=== PATIENT | female | born 1975 | race Caucasian/White ===

== ENCOUNTER 2020-05-08 08:52 | Inpatient (IN) | payer MEDICAID ==
[2020-05-08] VITALS (10 sets, daily range): BP systolic 136–186; BP diastolic 82–117
[~2020-05-08] VITALS: Ht 162.6 cm; Wt 82.1 kg
[2020-05-08] MEDS ORDERED: PARO20TA24 PO (10:26)
[2020-05-08] MEDS ORDERED: HALOPERIDOL 5 MG TABLET PO PRN (10:45)
[2020-05-08] MEDS ORDERED: PRAZ1 PO (11:12)
[2020-05-08] MEDS ORDERED: CYANOCOBALAMIN 1,000 MCG/ML VIAL IM ONE (11:15)
[2020-05-08] MEDS ORDERED: AmLODIPine BESYLATE 5 MG TABLET PO SCH (12:15)
[2020-05-08] MEDS: MULTIVITAMINS WITH MINERALS, THERAPEUTIC TABLET PO SCH (14:04)
[2020-05-08] MEDS: THIAMINE 100 MG TABLET PO SCH ×2 (14:04→16:32)
[2020-05-08] MEDS: FOLIC ACID 1 MG TABLET PO SCH (14:04)
[2020-05-08] MEDS: LORazepam 2 MG TABLET PO PRN (15:44)
[2020-05-08] MEDS: CloNIDine HCL 0.1 MG TABLET PO PRN (18:11)
[2020-05-08] MEDS ORDERED: AmLODIPine BESYLATE 2.5 MG TABLET PO ONE (19:45)
[2020-05-09] VITALS (10 sets, daily range): BP systolic 130–158; BP diastolic 84–124
[2020-05-09] MEDS: CloNIDine HCL 0.1 MG TABLET PO PRN (02:53)
[2020-05-09] MEDS: LORazepam 2 MG TABLET PO PRN (06:19)
[2020-05-09] MEDS ORDERED: LORazepam 2 MG TABLET PO PRN (07:00)
[2020-05-09 08:11] LABS: BASOPHILS % (AUTO) 0.6 % (0.0-2.0); EOSINOPHILS % (AUTO) 1.6 % (1.0-6.0); HEMOGLOBIN 13.5 g/dL (12.0-16.0); LYMPHOCYTES # (AUTO) 2.5 K/uL (1.0-4.8); LYMPHOCYTES % (AUTO) 24.6 % (22.0-44.0); MEAN CORPUSCULAR HEMOGLOBIN 26.3 pg (26.0-34.0); MEAN CORPUSCULAR HGB CONC 32.1 G/dL (31.0-37.0); MEAN CORPUSCULAR VOLUME 82 fL (80-100); MONOCYTES # (AUTO) 0.6 K/uL (0.1-1.0); NEUTROPHILS # (AUTO) 6.7 K/uL (1.8-7.7); NEUTROPHILS % (AUTO) 67.2 % (40.0-70.0); PLATELET COUNT (AUTO) 312 K/uL (150-450); RED BLOOD CELL COUNT(AUTO) 5.14 MIL/uL (4.00-5.20); RED CELL DISTRIBUTION WIDTH 18.1 % (11.5-14.5)
[2020-05-09] MEDS ORDERED: MAGNESIUM HYDROXIDE SUSPENSION 30 ML UDCUP PO PRN (08:30)
[2020-05-09] MEDS ORDERED: GuaiFENesin/D-METHORPHAN [SUGAR-FREE] 200-20MG/10 ML SYRUP UDCUP PO PRN (08:30)
[2020-05-09] MEDS ORDERED: ONDANSETRON HCL 4 MG TABLET PO PRN (08:30)
[2020-05-09] MEDS ORDERED: ALBUTEROL SULFATE HFA 90 MCG/PUFF 8 GM INHALER IH PRN (08:30)
[2020-05-09] MEDS ORDERED: PETROLATUM,WHITE 28 GM JELLY TP PRN (08:30)
[2020-05-09] MEDS ORDERED: DOCUSATE SODIUM 100 MG CAPSULE PO PRN (08:30)
[2020-05-09] MEDS ORDERED: MAG HYDROX/AL HYDROX/SIMETH ES 30 ML SUSPENSION UDCUP PO PRN (08:30)
[2020-05-09] MEDS ORDERED: NICOTINE 14 MG/24 HOUR PATCH TD PRN (08:30)
[2020-05-09] MEDS ORDERED: LOPERAMIDE HCL 2 MG CAPSULE PO PRN (08:30)
[2020-05-09] MEDS ORDERED: CloNIDine HCL 0.1 MG TABLET PO PRN (08:30)
[2020-05-09 08:42] LABS: HEMOGLOBIN A1C 5.1 % (3.8-5.6)
[2020-05-09 08:43] LABS: APPEARANCE,URINE CLOUDY (CLEAR); BILIRUBIN,URINE NEGATIVE (NEGATIVE); GLUCOSE, URINE (UA) NEGATIVE (NEGATIVE); KETONES,URINE NEGATIVE (NEGATIVE); LEUKOCYTE ESTERASE ,URINE SMALL (NEGATIVE); NITRATE,URINE NEGATIVE (NEGATIVE); OCCULT BLOOD,URINE LARGE (NEGATIVE); PROTEIN,URINE NEGATIVE (NEGATIVE); UROBILINOGEN,URINE 0.2 mg/dL (<=1.0)
[2020-05-09 08:46] LABS: ALANINE AMINOTRANSFERASE 88 U/L (12-78); ALBUMIN 3.8 g/dL (3.4-5.0); ALKALINE PHOSPHATASE 153 U/L (46-116); ANION GAP 15 mmol/L (8-16); ASPARTATE AMINOTRANSFERASE 47 U/L (15-37); BILIRUBIN,TOTAL 0.9 mg/dL (0.1-1.0); CALCIUM, TOTAL 8.4 mg/dL (8.8-10.5); CARBON DIOXIDE 26 mmol/L (22-29); CHLORIDE 97 mmol/L (98-107); CHOLESTEROL 137 mg/dL (131-200); CREATININE 0.71 mg/dL (0.60-1.30); FREE T4 (FREE THYROXINE) 1.09 ng/dL (0.76-1.46); GLOMERULAR FILTR. RATE CALC > 60 mL/min (>60); GLUCOSE,RANDOM 81 mg/dL (70-110); HCG,QUANTITATIVE < 1 mIU/mL (0-6); HDL CHOLESTEROL 69 mg/dL (40-60); LDL CHOL (CALC.) 36 mg/dL (0-130); SODIUM SERUM 138 mmol/L (136-145); THYROID STIMULATING HORMONE 3.46 uIU/mL (0.36-3.74); TOTAL PROTEIN, SERUM 8.7 g/dL (6.4-8.2); TRIGLYCERIDES 161 mg/dL (15-150); UREA NITROGEN, BLOOD 9 mg/dL (7-18)
[2020-05-09 08:57] LABS: AMPHET/METH SCREEN,URINE NEGATIVE (NEGATIVE); BARBITURATE SCREEN, URINE NEGATIVE (NEGATIVE); BENZODIAZEPINES SCREEN,URINE NEGATIVE (NEGATIVE); CANNABINOID SCREEN,URINE NEGATIVE (NEGATIVE); COCAINE SCREEN,URINE NEGATIVE (NEGATIVE); METHADONE SCREEN, URINE NEGATIVE (NEGATIVE); OPIATE SCREEN,URINE NEGATIVE (NEGATIVE)
[2020-05-09 08:58] LABS: PHENCYCLIDINE SCREEN,URINE NEGATIVE (NEGATIVE)
[2020-05-09] MEDS: LORazepam 2 MG TABLET PO SCH ×4 (09:23→20:05)
[2020-05-09] MEDS: AmLODIPine BESYLATE 10 MG TABLET PO SCH (09:23)
[2020-05-09] MEDS: THIAMINE 100 MG TABLET PO SCH ×2 (09:23→16:04)
[2020-05-09] MEDS: MULTIVITAMINS WITH MINERALS, THERAPEUTIC TABLET PO SCH (09:23)
[2020-05-09] MEDS: FOLIC ACID 1 MG TABLET PO SCH (09:23)
[2020-05-09 09:30] LABS: BACTERIA,URINE Few /HPF (None Seen); SQUAMOUS EPITHELIAL CELL,UR Moderate /LPF (None Seen)
[2020-05-09] MEDS: ACETAMINOPHEN 325 MG TABLET PO PRN (12:49)
[2020-05-09] MEDS: PARoxetine HCL 20 MG TABLET PO SCH (14:31)
[2020-05-09] MEDS ORDERED: POTASSIUM CHLORIDE 20 MEQ ER TABLET PO ONE (15:15)
[2020-05-09] MEDS: ZOLPIDEM TARTRATE 10 MG TABLET PO PRN (21:04)
[2020-05-10 00:25] VITALS: BP_SYST 128; BP_SYST 153; BP_DIAS 105; BP_DIAS 79
[2020-05-10 02:25] VITALS: BP_SYST 128; BP_SYST 153; BP_DIAS 105; BP_DIAS 79
[2020-05-10] MEDS: LORazepam 2 MG TABLET PO SCH ×4 (08:27→20:34)
[2020-05-10] MEDS: MULTIVITAMINS WITH MINERALS, THERAPEUTIC TABLET PO SCH (08:27)
[2020-05-10] MEDS: THIAMINE 100 MG TABLET PO SCH ×2 (08:27→16:08)
[2020-05-10] MEDS: AmLODIPine BESYLATE 10 MG TABLET PO SCH (08:27)
[2020-05-10] MEDS: FOLIC ACID 1 MG TABLET PO SCH (08:27)
[2020-05-10] MEDS: PARoxetine HCL 20 MG TABLET PO SCH (08:27)
[2020-05-10 08:40] VITALS: BP 125/77
[2020-05-10 12:16] VITALS: BP 138/94
[2020-05-10 16:18] VITALS: BP 116/92
[2020-05-10 18:36] VITALS: BP 116/92
[2020-05-10] MEDS: ACETAMINOPHEN 325 MG TABLET PO PRN (19:22)
[2020-05-10] MEDS: TraZODone HCL 100 MG TABLET PO SCH (20:34)
[2020-05-10] MEDS: PRAZOSIN HCL 1 MG CAPSULE PO SCH (20:35)
[2020-05-10] MEDS: ZOLPIDEM TARTRATE 10 MG TABLET PO PRN (20:37)
[2020-05-11] VITALS (7 sets, daily range): BP systolic 102–145; BP diastolic 66–87
[2020-05-11] MEDS ORDERED: LORazepam 1 MG TABLET PO PRN (07:00)
[2020-05-11] MEDS: FOLIC ACID 1 MG TABLET PO SCH (08:58)
[2020-05-11] MEDS: LORazepam 1 MG TABLET PO SCH ×4 (08:58→20:35)
[2020-05-11] MEDS: MULTIVITAMINS WITH MINERALS, THERAPEUTIC TABLET PO SCH (08:58)
[2020-05-11] MEDS: THIAMINE 100 MG TABLET PO SCH ×2 (08:58→16:36)
[2020-05-11] MEDS: SERTRALINE HCL 50 MG TABLET PO SCH (08:58)
[2020-05-11] MEDS: AmLODIPine BESYLATE 10 MG TABLET PO SCH (08:58)
[2020-05-11] MEDS: ACETAMINOPHEN 325 MG TABLET PO PRN (12:40)
[2020-05-11] MEDS: PRAZOSIN HCL 1 MG CAPSULE PO SCH (20:35)
[2020-05-11] MEDS: TraZODone HCL 100 MG TABLET PO SCH (20:35)
[2020-05-12 05:38] VITALS: BP 124/79
[2020-05-12 05:58] VITALS: BP 124/79
[2020-05-12] MEDS: MULTIVITAMINS WITH MINERALS, THERAPEUTIC TABLET PO SCH (08:45)
[2020-05-12] MEDS: FOLIC ACID 1 MG TABLET PO SCH (08:45)
[2020-05-12] MEDS: THIAMINE 100 MG TABLET PO SCH ×2 (08:45→16:41)
[2020-05-12] MEDS: AmLODIPine BESYLATE 10 MG TABLET PO SCH (08:45)
[2020-05-12] MEDS: SERTRALINE HCL 50 MG TABLET PO SCH (08:45)
[2020-05-12 09:16] VITALS: BP 95/61
[2020-05-12] MEDS: NALTREXONE HCL 50 MG TABLET PO SCH (12:27)
[2020-05-12] MEDS: IBUPROFEN 400 MG TABLET PO PRN (12:27)
[2020-05-12] MEDS: ACETAMINOPHEN 325 MG TABLET PO PRN (16:14)
[2020-05-12 16:15] VITALS: BP 112/69
[2020-05-12 16:56] VITALS: BP 112/69
[2020-05-12] MEDS: LORazepam 1 MG TABLET PO PRN (17:36)
[2020-05-12] MEDS: ZOLPIDEM TARTRATE 10 MG TABLET PO PRN (21:00)
[2020-05-12] MEDS: PRAZOSIN HCL 1 MG CAPSULE PO SCH (21:00)
[2020-05-12] MEDS: TraZODone HCL 100 MG TABLET PO SCH (21:00)
[2020-05-13 01:53] VITALS: BP 110/71
[2020-05-13 02:19] VITALS: BP 110/71
[2020-05-13] MEDS ORDERED: PNEUMOCOCCAL VACCINE POLYVALENT 0.5 ML VIAL [PPSV23] IM ONE (03:00)
[2020-05-13] MEDS: IBUPROFEN 400 MG TABLET PO PRN (05:04)
[2020-05-13] MEDS: LORazepam 1 MG TABLET PO PRN (05:05)
[2020-05-13] MEDS: FOLIC ACID 1 MG TABLET PO SCH (08:26)
[2020-05-13] MEDS: NALTREXONE HCL 50 MG TABLET PO SCH (08:26)
[2020-05-13] MEDS: THIAMINE 100 MG TABLET PO SCH ×2 (08:26→16:20)
[2020-05-13] MEDS: SERTRALINE HCL 50 MG TABLET PO SCH (08:26)
[2020-05-13] MEDS: AmLODIPine BESYLATE 10 MG TABLET PO SCH (08:26)
[2020-05-13] MEDS: MULTIVITAMINS WITH MINERALS, THERAPEUTIC TABLET PO SCH (08:26)
[2020-05-13 08:40] VITALS: BP 106/64
[2020-05-13 16:20] VITALS: BP 129/82
[2020-05-13 20:25] VITALS: BP 128/85
[2020-05-13] MEDS: PRAZOSIN HCL 1 MG CAPSULE PO SCH (20:29)
[2020-05-13] MEDS: TraZODone HCL 100 MG TABLET PO SCH (20:29)
[2020-05-14 01:51] VITALS: BP 138/86
[2020-05-14] MEDS: ZOLPIDEM TARTRATE 10 MG TABLET PO PRN (02:02)
[2020-05-14] MEDS ORDERED: OMEGA-3/DHA/EPA/FISH OIL 1,000 MG CAPSULE PO SCH (09:00)
[2020-05-14] MEDS: THIAMINE 100 MG TABLET PO SCH (09:15)
[2020-05-14] MEDS: NALTREXONE HCL 50 MG TABLET PO SCH (09:15)
[2020-05-14] MEDS: MULTIVITAMINS WITH MINERALS, THERAPEUTIC TABLET PO SCH (09:16)
[2020-05-14] MEDS: SERTRALINE HCL 50 MG TABLET PO SCH (09:16)
[2020-05-14] MEDS: AmLODIPine BESYLATE 10 MG TABLET PO SCH (09:16)
[2020-05-14] MEDS: FOLIC ACID 1 MG TABLET PO SCH (09:16)
[2020-05-14 09:54] VITALS: BP 130/79
[2020-05-14] MEDS ORDERED: SERT50TA12 PO (10:27)
[2020-05-14] MEDS ORDERED: NALT50TA PO (10:27)
[2020-05-14] MEDS ORDERED: TRAZ-257 PO (10:27)
[2020-05-14] MEDS ORDERED: PRAZ1 PO (10:27)
[2020-05-14] MEDS ORDERED: AMLO-258 PO (14:35)
== END 2020-05-14 15:35 | disposition home or self-care (01) | DRG 885 ==
LOC: B2S 11:35
PROC: 3E0234Z Introduction of Serum, Toxoid and Vaccine into Muscle, Percutaneous Approach (ICD-10-PCS; principal; 2020-05-13)
DX: F33.2 Major depressive disorder, recurrent severe without psychotic features (principal); R45.851 Suicidal ideations; N39.0 Urinary tract infection, site not specified; Z91.5 Personal history of self-harm; I10 Essential (primary) hypertension; Z88.0 Allergy status to penicillin; F10.20 Alcohol dependence, uncomplicated; F19.10 Other psychoactive substance abuse, uncomplicated; R74.0 Nonspecific elevation of levels of transaminase and lactic acid dehydrogenase [LDH]; E87.6 Hypokalemia; F43.12 Post-traumatic stress disorder, chronic; Z79.899 Other long term (current) drug therapy; Y90.8 Blood alcohol level of 240 mg/100 ml or more; Z23 Encounter for immunization
CPT/HCPCS: 80307; 83036; 84132; 84436; 84439; 84443; 86592; 87081; 90732; G0480; J3420

== ENCOUNTER 2020-07-24 14:54 | Inpatient (IN) | payer MEDICAID ==
[~2020-07-24] VITALS: Ht 162.6 cm; Wt 84.8 kg
[~2020-07-24 14:54] MED LIST: AMLO-258 PO; NALT50TA PO; PRAZ1 PO; SERT50TA12 PO; TRAZ-257 PO
[2020-07-24] MEDS ORDERED: HALOPERIDOL 5 MG TABLET PO PRN (15:15)
[2020-07-24] MEDS ORDERED: ZOLPIDEM TARTRATE 10 MG TABLET PO PRN (15:15)
[2020-07-24] MEDS ORDERED: TRAZ-257 PO (16:10)
[2020-07-24] MEDS ORDERED: NALT50TA6 PO (16:10)
[2020-07-24] MEDS ORDERED: SERT50TA12 PO (16:10)
[2020-07-24] MEDS ORDERED: PRAZ1 PO (16:10)
[2020-07-24 17:20] VITALS: BP 183/114
[2020-07-24] MEDS: LORazepam 2 MG TABLET PO PRN (17:56)
[2020-07-24 18:00] VITALS: BP 183/114
[2020-07-24] MEDS ORDERED: -PHARMACY VACCINE NOTE- MISC ONE (18:15)
[2020-07-24] MEDS ORDERED: INFLUENZA VIRUS VACCINE QVS 2020-21 (6MO+)/PF 60 MCG/0.5 ML SYRINGE IM ONE (18:15)
[2020-07-24 18:20] VITALS: BP 185/116
[2020-07-24] MEDS ORDERED: CloNIDine HCL 0.1 MG TABLET PO PRN (18:30)
[2020-07-24 20:20] VITALS: BP 161/113
[2020-07-25] VITALS (8 sets, daily range): BP systolic 131–150; BP diastolic 84–96
[2020-07-25] MEDS ORDERED: NICOTINE 14 MG/24 HOUR PATCH TD PRN (07:45)
[2020-07-25] MEDS ORDERED: ALBUTEROL SULFATE HFA 90 MCG/PUFF 8 GM INHALER IH PRN (07:45)
[2020-07-25] MEDS ORDERED: GuaiFENesin/D-METHORPHAN [SUGAR-FREE] 200-20MG/10 ML SYRUP UDCUP PO PRN (07:45)
[2020-07-25] MEDS ORDERED: ONDANSETRON HCL 4 MG TABLET PO PRN (07:45)
[2020-07-25] MEDS ORDERED: ACETAMINOPHEN 325 MG TABLET PO PRN (07:45)
[2020-07-25] MEDS ORDERED: PETROLATUM,WHITE 28 GM JELLY TP PRN (07:45)
[2020-07-25] MEDS ORDERED: LOPERAMIDE HCL 2 MG CAPSULE PO PRN (07:45)
[2020-07-25] MEDS ORDERED: MAG HYDROX/AL HYDROX/SIMETH ES 30 ML SUSPENSION UDCUP PO PRN (07:45)
[2020-07-25] MEDS ORDERED: CloNIDine HCL 0.1 MG TABLET PO PRN (07:45)
[2020-07-25] MEDS ORDERED: IBUPROFEN 400 MG TABLET PO PRN (07:45)
[2020-07-25] MEDS ORDERED: DOCUSATE SODIUM 100 MG CAPSULE PO PRN (07:45)
[2020-07-25] MEDS ORDERED: MAGNESIUM HYDROXIDE SUSPENSION 30 ML UDCUP PO PRN (07:45)
[2020-07-25] MEDS ORDERED: AmLODIPine BESYLATE 10 MG TABLET PO SCH (09:00)
[2020-07-25] MEDS: LORazepam 2 MG TABLET PO PRN ×2 (09:03→16:11)
[2020-07-25] MEDS: AmLODIPine BESYLATE 10 MG TABLET PO SCH (09:03)
[2020-07-25] MEDS: PARoxetine HCL 20 MG TABLET PO SCH (13:44)
[2020-07-25] MEDS: TraZODone HCL 50 MG TABLET PO SCH (21:05)
[2020-07-25] MEDS: PRAZOSIN HCL 1 MG CAPSULE PO SCH (21:05)
[2020-07-26 02:47] VITALS: BP 128/80
[2020-07-26 07:38] LABS: BASOPHILS % (AUTO) 0.5 % (0.0-2.0); EOSINOPHILS % (AUTO) 1.8 % (1.0-6.0); HEMATOCRIT 36.6 % (36-46); HEMOGLOBIN 12.3 g/dL (12.0-16.0); LYMPHOCYTES # (AUTO) 1.7 K/uL (1.0-4.8); LYMPHOCYTES % (AUTO) 20.8 % (22.0-44.0); MEAN CORPUSCULAR HEMOGLOBIN 27.2 pg (26.0-34.0); MEAN CORPUSCULAR HGB CONC 33.6 G/dL (31.0-37.0); MEAN CORPUSCULAR VOLUME 81 fL (80-100); MONOCYTES # (AUTO) 0.6 K/uL (0.1-1.0); MONOCYTES % (AUTO) 7.3 % (2.0-9.0); NEUTROPHILS # (AUTO) 5.6 K/uL (1.8-7.7); NEUTROPHILS % (AUTO) 69.6 % (40.0-70.0); PLATELET COUNT (AUTO) 194 K/uL (150-450); RED BLOOD CELL COUNT(AUTO) 4.52 MIL/uL (4.00-5.20); RED CELL DISTRIBUTION WIDTH 19.3 % (11.5-14.5)
[2020-07-26 08:09] VITALS: BP 106/71
[2020-07-26 08:15] LABS: ALANINE AMINOTRANSFERASE 41 U/L (12-78); ALBUMIN 3.3 g/dL (3.4-5.0); ALKALINE PHOSPHATASE 89 U/L (46-116); ANION GAP 10 mmol/L (8-16); ASPARTATE AMINOTRANSFERASE 26 U/L (15-37); BILIRUBIN,TOTAL 0.7 mg/dL (0.1-1.0); CALCIUM, TOTAL 8.1 mg/dL (8.8-10.5); CARBON DIOXIDE 26 mmol/L (22-29); CHLORIDE 105 mmol/L (98-107); CHOL/HDL RATIO 2.4 (3.9-5.7); CHOLESTEROL 134 mg/dL (131-200); CREATININE 0.71 mg/dL (0.60-1.30); GLOMERULAR FILTR. RATE CALC > 60 mL/min (>60); GLUCOSE,RANDOM 85 mg/dL (70-110); HCG,QUANTITATIVE 1 mIU/mL (0-6); HDL CHOLESTEROL 57 mg/dL (40-60); LDL CHOL (CALC.) 50 mg/dL (0-130); SODIUM SERUM 141 mmol/L (136-145); TOTAL PROTEIN, SERUM 7.1 g/dL (6.4-8.2); TRIGLYCERIDES 136 mg/dL (15-150); UREA NITROGEN, BLOOD 8 mg/dL (7-18)
[2020-07-26 08:28] LABS: HEMOGLOBIN A1C 4.9 % (3.8-5.6)
[2020-07-26] MEDS: AmLODIPine BESYLATE 10 MG TABLET PO SCH (08:30)
[2020-07-26] MEDS: PARoxetine HCL 20 MG TABLET PO SCH (08:31)
[2020-07-26] MEDS: LORazepam 2 MG TABLET PO PRN ×2 (09:03→16:34)
[2020-07-26 10:16] VITALS: BP 106/71
[2020-07-26] MEDS ORDERED: POTASSIUM CHLORIDE 20 MEQ ER TABLET PO ONE (15:15)
[2020-07-26 16:08] VITALS: BP 120/86
[2020-07-26] MEDS: PRAZOSIN HCL 1 MG CAPSULE PO SCH (21:05)
[2020-07-26] MEDS: TraZODone HCL 50 MG TABLET PO SCH (21:05)
[2020-07-27 04:50] VITALS: BP 122/81
[2020-07-27 08:34] VITALS: BP 121/79
[2020-07-27] MEDS: AmLODIPine BESYLATE 10 MG TABLET PO SCH (08:53)
[2020-07-27] MEDS: PARoxetine HCL 20 MG TABLET PO SCH (08:53)
[2020-07-27] MEDS ORDERED: PARO20TA24 PO (11:04)
[2020-07-27] MEDS ORDERED: TRAZ-252 PO (11:04)
== END 2020-07-27 11:30 | disposition home or self-care (01) | DRG 751 ==
LOC: B3A 16:55
PROC: 3E0234Z Introduction of Serum, Toxoid and Vaccine into Muscle, Percutaneous Approach (ICD-10-PCS; principal; 2020-07-24)
DX: F33.2 Major depressive disorder, recurrent severe without psychotic features (principal); Z91.5 Personal history of self-harm; R45.851 Suicidal ideations; I10 Essential (primary) hypertension; Z88.0 Allergy status to penicillin; F43.12 Post-traumatic stress disorder, chronic; Y90.9 Presence of alcohol in blood, level not specified; F19.10 Other psychoactive substance abuse, uncomplicated; F17.200 Nicotine dependence, unspecified, uncomplicated; E87.6 Hypokalemia; F10.10 Alcohol abuse, uncomplicated; Z23 Encounter for immunization
CPT/HCPCS: 83036; 84132; 86592; 90686; G0480